=== PATIENT | male | born 1975 | race Caucasian/White ===

== ENCOUNTER 2023-10-18 13:31 | Inpatient (IN) | payer OTHER ==
[~2023-10-18] VITALS: Ht 177.8 cm; Wt 86.2 kg
[2023-10-18] MEDS ORDERED: ONDANSETRON HCL/PF 4 MG/2 ML VIAL ONE (14:15)
[2023-10-18] MEDS ORDERED: diphenhydrAMINE HCL 50 MG/ML VIAL ONE (14:15)
[2023-10-18] MEDS ORDERED: PANTOPRAZOLE 40 MG VIAL ONE (14:15)
[2023-10-18] MEDS ORDERED: HYDROMORPHONE INJ 2 MG/ML DISP.SYRIN ONE (14:16)
[2023-10-18] MEDS: diphenhydrAMINE HCL 50 MG/ML VIAL IV ONE (14:29)
[2023-10-18] MEDS: HYDROMORPHONE INJ 2 MG/ML DISP.SYRIN IV ONE (14:30)
[2023-10-18] MEDS: PANTOPRAZOLE 40 MG VIAL IV ONE (14:30)
[2023-10-18] MEDS: ONDANSETRON HCL/PF - ER 4 MG/2 ML VIAL IV ONE (14:31)
[2023-10-18] MEDS ORDERED: DIPH50CA4 PO (14:38)
[2023-10-18] MEDS ORDERED: ALBU18HF2 IH (14:38)
[2023-10-18] MEDS ORDERED: HYDR500C2 PO (14:38)
[2023-10-18] MEDS ORDERED: HYDR4TAB4 PO (14:38)
[2023-10-18] MEDS ORDERED: PROM50TA5 PO (14:38)
[2023-10-18] MEDS ORDERED: PROM50SU5 RC (14:38)
[2023-10-18] MEDS ORDERED: FOLI0.4T6 PO (14:38)
[2023-10-18] MEDS ORDERED: APIX5TAB PO (14:38)
[2023-10-18] MEDS ORDERED: MIDO10TA PO (14:38)
[2023-10-18 14:46] LABS: BASOPHILS % (AUTO) 0.4 % (0.0-2.0); EOSINOPHILS # (AUTO) 0.4 K/uL (0.0-0.7); EOSINOPHILS % (AUTO) 6.1 % (0.0-6.0); HEMATOCRIT 33 % (39-51); HEMOGLOBIN 10.8 g/dL (13.5-17.5); LYMPHOCYTES # (AUTO) 1.5 K/uL (0.8-4.8); LYMPHOCYTES % (AUTO) 24.1 % (20.0-44.0); MEAN CORPUSCULAR HEMOGLOBIN 23 PG (26.0-33.0); MEAN CORPUSCULAR HGB CONC 33 g/dl (31.0-36.0); MEAN CORPUSCULAR VOLUME 71 fL (80-96); MONOCYTES # (AUTO) 0.4 K/uL (0.1-1.30); MONOCYTES % (AUTO) 6.7 % (2.0-12.0); NEUTROPHILS # (AUTO) 3.8 K/uL (1.8-8.9); NEUTROPHILS % (AUTO) 62.7 % (43.0-81.0); PLATELET COUNT (AUTO) 134 K/uL (150-450); RED BLOOD CELL COUNT(AUTO) 4.65 MIL/uL (4.5-6.0); RED CELL DISTRIBUTION WIDTH 20.3 % (11.5-15.0)
[2023-10-18 15:05] LABS: CALCIUM, SERUM 7.3 mg/dL (8.5-10.1); CREATININE 0.9 mg/dL (0.6-1.3); POTASSIUM 3.9 mmol/L (3.5-5.1)
[2023-10-18 15:12] LABS: ALBUMIN 3.8 g/dL (3.4-5.0); BILIRUBIN,DIRECT 0.1 mg/dL (0.0-0.2); BILIRUBIN,TOTAL 0.4 mg/dL (0.2-1.0); TOTAL PROTEIN, SERUM 7.5 g/dL (6.4-8.2)
[2023-10-18 16:10] LABS: INR 0.95 (0.91-1.10); PARTIAL THROMBOPLASTIN TIME 29.5 SEC (24.3-34.3); PROTHROMBIN TIME 10.1 SECS (9.2-11.1)
[2023-10-18] MEDS ORDERED: HYDROMORPHONE 1 MG/1 ML DISP.SYRIN ONE (16:48)
[2023-10-18] MEDS: HYDROMORPHONE 1 MG/1 ML DISP.SYRIN IV ONE (16:50)
[2023-10-18] MEDS ORDERED: ONDANSETRON HCL/PF 4 MG/2 ML VIAL IVP PRN (17:00)
[2023-10-18] MEDS ORDERED: ACETAMINOPHEN 325 MG TABLET PO PRN (17:00)
[2023-10-18] MEDS: IV NS 0.9% 1,000 ML IV PRN (18:44)
[2023-10-18] MEDS ORDERED: HYDROCODONE/APAP 5/325MG TABLET PO PRN (19:00)
[2023-10-18 20:00] VITALS: BP 103/69; TEMP 97.7; O2SAT 100
[2023-10-18 20:03] LABS: EOSINOPHILS % (MANUAL) 9 % (0-4); LYMPHOCYTES % (MANUAL) 27 % (16-48); MONOCYTES % (MANUAL) 4 % (0-11.0); NEUTROPHILS % (MANUAL) 60 (42-76); PLATELET ESTIMATE DECREASED
[2023-10-18 20:04] LABS: ANISOCYTOSIS 1+; OVALOCYTES 1+; TEAR DROP CELLS RARE
[2023-10-18] MEDS: HYDROMORPHONE 1 MG/1 ML DISP.SYRIN IV PRN (20:52)
[2023-10-18] MEDS: HYDROXYUREA 500 MG CAPSULE PO SCH (20:52)
[2023-10-18] MEDS ORDERED: diphenhydrAMINE HCL 50 MG/ML VIAL IV PRN (21:00)
[2023-10-18] MEDS ORDERED: diphenhydrAMINE HCL 50 MG CAPSULE PO PRN (21:00)
[2023-10-19] VITALS: BP 111/79; TEMP 98; O2SAT 99
[2023-10-19] MEDS: IV NS 0.9% 1,000 ML IV PRN (03:34)
[2023-10-19 04:00] VITALS: BP 105/62; TEMP 98; O2SAT 100
[2023-10-19] MEDS: PANTOPRAZOLE 40 MG VIAL IV SCH (06:01)
[2023-10-19] MEDS ORDERED: ALBUTEROL FS 2.5 MG/3 ML VIAL.NEB NEB PRN (06:30)
[2023-10-19] MEDS ORDERED: diphenhydrAMINE HCL 25 MG CAPSULE PO PRN (06:30)
[2023-10-19 08:00] VITALS: BP 111/76; TEMP 97.7; O2SAT 99
[2023-10-19] MEDS: FOLIC ACID 1 MG TABLET PO SCH (09:04)
[2023-10-19] MEDS: MIDODRINE HCL (5MG) 5 MG TABLET PO SCH (09:05)
[2023-10-19 10:40] LABS: BASOPHILS % (AUTO) 0.7 % (0.0-2.0); EOSINOPHILS # (AUTO) 0.3 K/uL (0.0-0.7); EOSINOPHILS % (AUTO) 6.1 % (0.0-6.0); HEMATOCRIT 31 % (39-51); HEMOGLOBIN 10.2 g/dL (13.5-17.5); LYMPHOCYTES # (AUTO) 1.1 K/uL (0.8-4.8); LYMPHOCYTES % (AUTO) 21.8 % (20.0-44.0); MEAN CORPUSCULAR HEMOGLOBIN 23 PG (26.0-33.0); MEAN CORPUSCULAR HGB CONC 33 g/dl (31.0-36.0); MEAN CORPUSCULAR VOLUME 71 fL (80-96); MONOCYTES # (AUTO) 0.4 K/uL (0.1-1.30); MONOCYTES % (AUTO) 7.8 % (2.0-12.0); NEUTROPHILS # (AUTO) 3.1 K/uL (1.8-8.9); NEUTROPHILS % (AUTO) 63.6 % (43.0-81.0); PLATELET COUNT (AUTO) 124 K/uL (150-450); RED BLOOD CELL COUNT(AUTO) 4.43 MIL/uL (4.5-6.0); RED CELL DISTRIBUTION WIDTH 19.7 % (11.5-15.0); WHITE BLOOD COUNT (AUTO) 4.9 K/uL (4.3-11.0)
[2023-10-19 10:51] LABS: CALCIUM, SERUM 8.7 mg/dL (8.5-10.1); CREATININE 0.9 mg/dL (0.6-1.3)
[2023-10-19] MEDS ORDERED: SUCCINYLCHOLINE CHLORIDE 20 MG/ML VIAL ONE (11:32)
[2023-10-19 16:00] VITALS: BP 114/79; TEMP 97.6; O2SAT 96
[2023-10-19 20:00] VITALS: BP 112/79; TEMP 98; O2SAT 97
[2023-10-20 04:00] VITALS: BP 123/90; TEMP 98; O2SAT 97
[2023-10-20 08:00] VITALS: BP 104/76; TEMP 97.6; O2SAT 98
[2023-10-20 16:00] VITALS: BP 114/90; TEMP 97.6; O2SAT 97
[2023-10-21] VITALS: BP 114/90; TEMP 97.6; O2SAT 97
[2023-10-21 08:00] VITALS: BP 108/79; TEMP 97.9; O2SAT 97
[2023-10-21 08:45] VITALS: BP 108/79
== END 2023-10-21 10:15 | disposition home or self-care (01) | DRG 392 ==
LOC: ER 13:39 → TELE1 17:16 → MEDSG1 10-19 09:46
PROVIDERS: ADMIT Nurse Practitioner Acute Care; ATTEND Internal Medicine
PROC: 0DJ08ZZ Inspection of Upper Intestinal Tract, Via Natural or Artificial Opening Endoscopic (ICD-10-PCS; principal; 2023-10-19)
DX: K29.70 Gastritis, unspecified, without bleeding (principal); D68.59 Other primary thrombophilia; Z98.890 Other specified postprocedural states; D57.1 Sickle-cell disease without crisis; E66.9 Obesity, unspecified; D50.9 Iron deficiency anemia, unspecified; Z87.39 Personal history of other diseases of the musculoskeletal system and connective tissue; Z87.11 Personal history of peptic ulcer disease; I10 Essential (primary) hypertension; J45.909 Unspecified asthma, uncomplicated; Z86.711 Personal history of pulmonary embolism; Z88.8 Allergy status to other drugs, medicaments and biological substances; Z88.6 Allergy status to analgesic agent; Z88.4 Allergy status to anesthetic agent; Z91.041 Radiographic dye allergy status; Z79.01 Long term (current) use of anticoagulants; Z79.51 Long term (current) use of inhaled steroids; Z79.899 Other long term (current) drug therapy
CPT/HCPCS: 36415; 71045-TC; 80048-TC; 80076-TC; 83690-TC; 85025-TC; 85045-TC; 85730-TC; 86850-TC; C9113; G0378; J0330; J1170; J1200; J2405; J7030; Q0163